=== PATIENT | female | born 2000 | race Two or more races ===

== ENCOUNTER 2022-02-26 23:31 | Emergency (ER) | payer OTHER ==
[~2022-02-26] VITALS: Ht 152.4 cm; Wt 59.9 kg
[2022-02-26] MEDS ORDERED: METHIMAZOLE10 MG (23:45)
== END 2022-02-27 04:51 | disposition home or self-care (01) ==
LOC: EMR PED 23:31 → ER 02-27 00:01
DX: S90.211A Contusion of right great toe with damage to nail, initial encounter (principal); W20.8XXA Other cause of strike by thrown, projected or falling object, initial encounter; Y93.9 Activity, unspecified; Y92.9 Unspecified place or not applicable